=== PATIENT | male | born 1940 | race Hispanic/Latino ===

== ENCOUNTER 2018-03-07 08:56 | Emergency (ER) | payer OTHER ==
[~2018-03-07] VITALS: Ht 170.2 cm; Wt 117.9 kg
--- NOTE | 2018-03-07 09:30 | ED HEADACHE COMPLAINT ---
History of Present Illness General Chief Complaint: Headache Stated Complaint: RUIZ X 2 DAYS/SEEN AT [facility] Source: patient, family Exam Limitations: language barrier Vital Signs & Intake/Output Vital Signs & Intake/Output Vital Signs Date Time Temp Pulse Resp B/P B/P Pulse O2 O2 Flow FiO2 Mean Ox Delivery Rate 03/07 1133 97.8 55 20 153/70 98 Room Air 03/07 0912 99.3 55 18 129/69 95 Room Air Allergies Coded Allergies: No Known Allergies (03/07/18) Reconcile Medications Amoxicillin/Potassium Clav (Augmentin 875-125 Tablet) 875 MG-125 MG TABLET 1 TAB PO BID sinusitis Butalb/Acetaminophen/Caffeine (Cvdtzs-Gwydtigo-Awvt 50-325-40) 50 MG-325 MG-40 MG TABLET 1-2 TAB PO DAILY headache Triage Note: PT PRESENTS TO THE ER C/O SHARP PAIN TO THE RIGHT SIDE OF HIS HEAD. PT STATES THAT THIS HAPPENED 10 YEARS AGO AND IT WAS A CLOT.. PT WAS SEEN IN [facility] 2 NIGHTS AGO, NO CAT SCAN WAS DONE. PT PAIN DID NOT GO AWAY. PT STATES THE PAIN WAS 10/10 PAIN. PT HAS HX OF DM. Triage Nurses Notes Reviewed? yes Onset: Abrupt Duration: day(s):, constant Timing: recent history Quality/Severity: moderate, severe HPI: 77-year-old male comes into the emergency room with complaints of right-sided headache. Headache is been going on for about 2-3 days. Sharp. Located on one aspect on the right side of his head. Denies any fever chills vomiting. Denies any noise sensitivity or light activity. Denies any slurring of his words or confusion. He was seen at the hospital the other day for chest pain and headache. He has no complaints of chest pain today. Comes in for further evaluation of headache. He reports they did not do a CT scan picture of his brain the other day. (Nando Prakash) Past History Travel History Traveled to [place] past 21 day No Medical History Any Pertinent Medical History? see below for history Neurological: BLOOD CLOT IN HEAD PER PT Cardiovascular: hypertension, HLD Respiratory: pneumonia Endocrine: diabetes Surgical History Surgical History: non-contributory Psychosocial History What is your primary language Tanzanian Tobacco Use: Never used Family History Hx Contributory? No (Nando Prakash) Review of Systems Review of Systems Constitutional: Reports: no symptoms. Eyes: Reports: no symptoms. Ears, Nose, Throat, Mouth: Reports: no symptoms. Respiratory: Reports: no symptoms. Cardiovascular: Reports: no symptoms. Gastrointestinal/Abdominal: Reports: no symptoms. Genitourinary: Reports: no symptoms. Musculoskeletal: Reports: see HPI. Skin: Reports: no symptoms. Neurological/Psychological: Reports: see HPI. Hematologic/Endocrine: Reports: no symptoms. Endocrine: Reports: no symptoms. Immunologic/Allergic: Reports: no symptoms. All Other Systems: Reviewed and Negative (Nando Prakash) Physical Exam Physical Exam General Appearance: well developed/nourished, no apparent distress, alert, awake Head: atraumatic, normal appearance Eyes: Bilateral: normal appearance, PERRL, EOMI. Ears, Nose, Throat: normal pharynx, normal ENT inspection, hearing grossly normal Neck: normal inspection Respiratory: normal breath sounds, chest non-tender, no respiratory distress Cardiovascular: regular rate/rhythm Extremities: normal inspection Psychiatric: awake, alert, oriented x 3 Cranial Nerves: normal hearing, normal speech, PERRL Coordination/Gait: normal gait Motor/Sensory: no motor/sensory deficits, NO PRONATOR DRIFT Skin: intact, normal color Core Measures Sepsis Present: No Sepsis Focused Exam Completed? No (Nando Prakash) Progress Differential Diagnosis: carotid dissection, cav sinus thromb, cluster RUIZ, encephalitis, IC mass/tumor, intracranial Hem., meningitis, migraine RUIZ, musculoskeletal pain, sinusitis, SSS thrombosis, subarach. Hem., tension RUIZ, temporal arteritis, TMJ syndrome, viral cephalgia Plan of Care: Orders Procedure Date/time Status TROPONIN LEVEL 03/07 927 Complete PARTIAL THROMBOPLASTIN TIME 03/07 927 Complete PROTHROMBIN TIME 03/07 927 Complete COMPREHENSIVE METABOLIC PANEL 03/07 927 Complete CBC WITHOUT DIFFERENTIAL 03/07 927 Complete EKG 03/07 920 Active Laboratory Tests 03/07/18 09: Anion Gap 9, Estimated GFR 46 L, BUN/Creatinine Ratio 14.0, Glucose 182 H, Calcium 8.5, Total Bilirubin 0.1 L, AST 37, ALT 55, Alkaline Phosphatase 78, Troponin I < 0.01, Total Protein 5.7 L, Albumin 3.2 L, Globulin 2.5, Albumin/ Globulin Ratio 1.3, PT 12.5, INR 1.15, APTT 28, CBC w Diff NO MAN DIFF REQ, RBC 4.05 L, MCV 82.0, MCH 26.3 L, MCHC 32.0 L, RDW 15.6 H, MPV 11.2 H, Gran % 68.6, Lymphocytes % 16.0 L, Monocytes % 8.7, Eosinophils % 6.1 H, Basophils % 0.6, Absolute Granulocytes 5.8, Absolute Lymphocytes 1.3, Absolute Monocytes 0.7 H, Absolute Eosinophils 0.5, Absolute Basophils 0 Diagnostic Imaging: Viewed by Me: CT Scan. Discussed w/RAD: CT Scan. Radiology Impression: PATIENT: JUDY SEGURA PRESENT AGE: 77 PATIENT ACCOUNT NO: [id number] : 42 LOCATION: [facility] ORDERING PHYSICIAN: Nando KATE SERVICE DATE: 03/07/18 EXAM TYPE : CAT - CT HEAD ANGIOGRAM CT ANGIOGRAM HEAD CLINICAL INFORMATION: Right-sided headache. Rule out bleed or clot. COMPARISON: None available. TECHNIQUE: Test bolus sequences followed by intravenous administration 95 mL of Optiray 320 intravenous contrast. Helical imaging was performed in the axial plane from the mediastinum to the skull vertex. Delayed postcontrast imaging of the head was also performed. The data was processed at the mechanical engineering technologist's workstation for generation of MIP sequences. Three-dimensional volume rendered reformatted images were also generated at an offline 3-D workstation. Stenoses are graded per criteria similar to NASCET. 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 This lesion is difficult to measure on CT. Endocrine laboratory evaluation also recommended. No additional pathologic enhancement intracranially. There is no intracranial hemorrhage, hydrocephalus, extra-axial surface collection, midline shift, or other herniation pattern. Tavera to white matter differentiation is diffusely maintained without evidence of an evolved acute territorial infarct. The basilar cisterns are preserved. No significant soft tissue abnormality. No acute osseous abnormality. Near-complete opacification of the right maxillary sinus with a fluid level. There is a smaller fluid level within the left maxillary sinus. Moderate mucosal thickening within the ethmoid air cells bilaterally. Moderate mucosal thickening within the inferior left frontal sinus. Mild mucosal thickening within the sphenoid sinuses bilaterally. The mastoid air cells are clear. There is calcific atherosclerotic disease throughout the carotid siphons bilaterally without significant stenosis. No acute proximal large vessel occlusion, focal flow-limiting stenosis, or saccular intracranial aneurysm is identified. No abnormal parenchymal enhancement or regional oligemia is visualized. 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 Endocrine laboratory evaluation also recommended. - Sinus disease with maxillary fluid levels that can be correlated for clinical signs of acute sinusitis. - There is calcific atherosclerotic disease throughout the carotid siphons bilaterally without significant stenosis. Otherwise unremarkable CTA of the head. DICTATED BY: Manny Meyer MD DATE/ TIME DICTATED:03/07/181123 LAP REGULATOR:LAURA DATE/TIME TRANSCRIBED: 03/07/181123 CONFIDENTIAL, DO NOT COPY WITHOUT APPROPRIATE AUTHORIZATION. < Electronically signed in Other Vendor System> SIGNED BY: Manny Meyer MD 03/07/18 7523 Initial ED EKG: normal sinus rhythm, rate (55) (Nando Prakash) Departure Departure Disposition: HOME OR SELF CARE Condition: Stable Clinical Impression Primary Impression: Headache Secondary Impressions: Sinusitis, Suprasellar mass Additional Instructions: Follow-up with primary care doctor. You need outpatient MRI of your brain. Follow-up with hide puller. Take Augmentin and Fioricet as prescribed. Return if any concerns worsening symptoms. Please go over all results of today' s visit with your primary care doctor. Contact your primary care doctor to let them know you were here in the emergency room. There may be nonspecific findings which may not be related to your visit today here in the emergency room but may require further evaluation and chronic monitoring by your primary care doctor. If you had a laceration today the chance of foreign body always remains. You should follow-up with your primary care doctor for recheck in 3-5 days for a wound check. If you had an x-ray done there is a chance that a fracture could have been missed on initial read and you should follow-up with your primary care doctor for repeat x-rays if symptoms persist. If your blood pressure was elevated here in the emergency room please have rechecked by [facility] primary care doctor within the next 48. If you were prescribed a narcotic here in the emergency room or any type of controlled substances you're not allowed to drive while taking this medication or operate any type of heavy machinery. Narcotics can make you feel lightheaded dizziness nausea and can cause constipation. You may need to warehouse order picker a stool softener. Thank you for choosing [facility] emergency room. Please return to the emergency room immediately if you have any other concerns worsening of symptoms. Departure Forms: Customer Survey General Discharge Information Prescriptions: Current Visit Scripts Butalb/Acetaminophen/Caffeine (Vzuuqa-Njyemcua-Iyia 50-325-40) 1-2 TAB PO DAILY #30 TAB Amoxicillin/Potassium Clav (Augmentin 875-125 Tablet) 1 TAB PO BID #20 TAB Comments 03/07/18 The patient clinically looks well. No acute findings on CT scan. Neurologically intact. Patient was told the results of the CT scan and needs follow-up for MRI. Patient was given copies of everything. Headache improved. Started on antibiotic for possible sinusitis. Return if any other concerns worsening symptoms. Understands and agrees with plan of care. Case was discussed with Dr. Lorenzo. He was seen at the emergency room the other day for chest pain. He has no complaints of chest pain at all today. He was also having a headache at that time. Apparently he did not have a CT scan. (Nando Prakash) PA/COOK MANAGER Co-Sign Statement Statement: ED Attending supervision documentation- [X] I saw and evaluated the patient. I have also reviewed all the pertinent lab results and diagnostic results. I agree with the findings and the plan of care as documented in the PA's/COOK MANAGER's documentation. [X] I have reviewed the ED Record and agree with the PA's/COOK MANAGER's documentation. [] Additions or exceptions (if any) to the PAs/COOK MANAGER's note and plan are summarized below: [] (Maura VILLANUEVA,Aston Lopez)
[2018-03-07 10:07] LABS: ABSOLUTE BASOPHIL COUNT 0 /CUMM (0.0-0.2); ABSOLUTE EOSINOPHIL COUNT 0.5 /CUMM (0.0-0.7); ABSOLUTE GRANULOCYTE CT 5.8 /CUMM (1.4-6.5); ABSOLUTE LYMPH COUNT 1.3 /CUMM (1.2-3.4); ABSOLUTE MONOCYTE COUNT 0.7 /CUMM (0.10-0.60); BASOPHIL % 0.6 % (0.0-2.0); EOSINOPHIL % 6.1 % (0-5); GRANULOCYTE % 68.6 % (42.2-75.2); HEMATOCRIT 33.2 % (42-52); MEAN CORPUSCULAR HGB 26.3 PG (27.0-31.0); MEAN PLATELET VOLUME 11.2 FL (7.4-10.4); PLATELET COUNT 155 /CUMM (130-400); RBC DISTRIBUTION WIDTH 15.6 % (11.5-14.5); RED BLOOD CELL CT 4.05 /CUMM (4.70-6.10); WHITE BLOOD CELL COUNT 8.4 /CUMM (4.8-10.8)
[2018-03-07 10:11] LABS: PT 12.5 SEC (9.4-12.5); PTT 28 SEC (25-37)
[2018-03-07 11:33] VITALS: BP 153/70
--- NOTE | 2018-03-07 11:39 | CT SCAN REPORT ---
CT ANGIOGRAM HEAD CLINICAL INFORMATION: Right-sided headache. Rule out bleed or clot. COMPARISON: None available. TECHNIQUE: Test bolus sequences followed by intravenous administration 95 mL of Optiray 320 intravenous contrast. Helical imaging was performed in the axial plane from the mediastinum to the skull vertex. Delayed postcontrast imaging of the head was also performed. The data was processed at the histotechnologist's workstation for generation of MIP sequences. Three-dimensional volume rendered reformatted images were also generated at an offline 3-D workstation. Stenoses are graded per criteria similar to NASCET. 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 This lesion is difficult to measure on CT. Endocrine laboratory evaluation also recommended. No additional pathologic enhancement intracranially. There is no intracranial hemorrhage, hydrocephalus, extra-axial surface collection, midline shift, or other herniation pattern. Tavera to white matter differentiation is diffusely maintained without evidence of an evolved acute territorial infarct. The basilar cisterns are preserved. No significant soft tissue abnormality. No acute osseous abnormality. Near-complete opacification of the right maxillary sinus with a fluid level. There is a smaller fluid level within the left maxillary sinus. Moderate mucosal thickening within the ethmoid air cells bilaterally. Moderate mucosal thickening within the inferior left frontal sinus. Mild mucosal thickening within the sphenoid sinuses bilaterally. The mastoid air cells are clear. There is calcific atherosclerotic disease throughout the carotid siphons bilaterally without significant stenosis. No acute proximal large vessel occlusion, focal flow-limiting stenosis, or saccular intracranial aneurysm is identified. No abnormal parenchymal enhancement or regional oligemia is visualized. 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 Endocrine laboratory evaluation also recommended. - Sinus disease with maxillary fluid levels that can be correlated for clinical signs of acute sinusitis. - There is calcific atherosclerotic disease throughout the carotid siphons bilaterally without significant stenosis. Otherwise unremarkable CTA of the head.
[2018-03-07] MEDS ORDERED: BUTALB-ACETAMI1 EACH PO (12:24)
[2018-03-07] MEDS ORDERED: AUGMENTIN 875-1 EACH PO (12:24)
== END 2018-03-07 12:37 ==
LOC: ERH 08:56
PROVIDERS: Physician Assistant Medical
DX: J32.9 Chronic sinusitis, unspecified (principal); R22.0 Localized swelling, mass and lump, head; I10 Essential (primary) hypertension; E11.9 Type 2 diabetes mellitus without complications
CPT/HCPCS: 93005; 93010; 96374; 96375; J2765